=== PATIENT | female | born 1955 | race Caucasian/White ===

== ENCOUNTER 2018-03-05 15:21 | Emergency (ER) | payer MEDICAID ==
[2018-03-05] MEDS: HYDROCODONE/APAP (5/325) TAB PO (17:20)
== END 2018-03-05 18:40 | disposition home or self-care (01) ==
LOC: FTE 15:21
DX: S80.211A Abrasion, right knee, initial encounter (principal); S80.212A Abrasion, left knee, initial encounter; W01.0XXA Fall on same level from slipping, tripping and stumbling without subsequent striking against object, initial encounter; Y92.512 Supermarket, store or market as the place of occurrence of the external cause
CPT/HCPCS: 72170; 73550; 73562; 73590; 99284-25